=== PATIENT | female | born 1950 | race Caucasian/White ===

== ENCOUNTER → 2017-03-09 | Outpatient (CLI) | payer BC, MEDICARE ==
[~2017-03-09] MED LIST: ALTACE10 MG PO; ASPIRIN325 MG PO; CYTOMEL5 MCG PO; DILAUDID 2MG(HYD2 MG PO; LEVOTHROID (S100 MCG PO; NORCO 5-325 TA1 EACH PO; PRAVACHOL20 MG PO; SOMA350 MG PO; ZANTAC 7575 MG PO; ZYRTEC10 MG PO
== END | disposition disaster alternative care site (69) ==
LOC: GRAD 14:25
DX: M25.572 Pain in left ankle and joints of left foot (principal)

== ENCOUNTER 2017-04-07 21:00 | Observation (INO) | payer BC, MEDICARE ==
[~2017-04-07] VITALS: Ht 154.9 cm; Wt 88.2 kg
--- NOTE | ~2017-04-07 | OR ---
PATIENT'S NAME: RASHI TEMPLETON [facility] AGE: 66 Y [address] ROOM: [place] [address] [place] [facility] [place]: 04/07/2017 OR/Procedure Report DISCHARGE DATE: 04/10/2017 FAMILY PHYSICIAN: Roya Forbes MD ATTENDING PHYSICIAN: BERNARDO HENDERSON SURGEON: Bernardo Henderson MD [facility] EDUCATOR: Juan R Johnson PA-C. DATE OF PROCEDURE: 04/07/2017 PREOPERATIVE DIAGNOSES: 1. Left symptomatic flatfoot deformity. 2. Forefoot abductus. 3. Sub-fibular impingement syndrome. 4. Spring ligament failure. 5. Gastrocnemius equinus/shortened Achilles tendon. POSTOPERATIVE DIAGNOSES: 1. Left symptomatic flatfoot deformity. 2. Forefoot abductus. 3. Sub-fibular impingement syndrome. 4. Spring ligament failure. 5. Gastrocnemius equinus/shortened Achilles tendon. PROCEDURE: 1. Left gastrocnemius recession. 2. Medial sliding calcaneal osteotomy. 3. Lateral column lengthening. 4. Transfer of flexor digitorum longus tendon to the navicular bone. 5. Posterior tibial tendon tenolysis. 6. Cotton osteotomy of the medial cuneiform. 7. Use of intraoperative fluoroscopy, less than 1 hour. ANESTHESIA: General endotracheal anesthesia and peripheral nerve block. FLUIDS: See Anesthesia report. ESTIMATED BLOOD LOSS: Minimal. TOURNIQUET: Left proximal thigh 250 mmHg. SPECIMEN: None. COMPLICATIONS: None. DISPOSITION: Stable to PACU. PATIENT'S NAME: RASHI TEMPLETON [facility] AGE: 66 Y [address] ROOM: [place] [address] [place] [facility] [place]: 04/07/2017 OR/Procedure Report DISCHARGE DATE: 04/10/2017 FAMILY PHYSICIAN: Roya Forbes MD ATTENDING PHYSICIAN: BERNARDO HENDERSON COUNTS: All counts were correct. IMPLANTS: Arthrex Step Plate for calcaneal osteotomy and bone wedges for lateral column lengthening and cotton osteotomy. INDICATIONS: Ms. Templeton is a 66-year-old female, who is undergoing the noted procedure above. The risks, benefits, and alternatives of pursuing the surgical intervention were discussed with the patient in detail. The patient elected to proceed with surgery as noted above. I marked the patient's left lower extremity indicating the correct surgical site. Anesthesia was consulted for their perioperative evaluation of the patient. OPERATIVE REPORT IN DETAIL: The patient was brought from the holding area to the operating room. Time-out was performed. General endotracheal anesthesia was administered. The left lower extremity was prepped and draped in a sterile fashion. A time- out was performed. Antibiotics were administered for perioperative prophylaxis. I turned my attention to the medial aspect of the leg. I performed a gastrocnemius recession procedure. I achieved improved dorsiflexion of the ankle. It was closed in layers. I turned my attention to the lateral aspect of the calcaneus. I introduced intraoperative fluoroscopy. I made an incision over the lateral aspect of the calcaneus to access the calcaneus. I used an oscillating saw to perform our medial calcaneal osteotomy. I slid the calcaneus medially approximately 10 mm. I used a 10 mm Step Plate and under fluoroscopic guidance, I placed plate screws to hold it in place. The wound was then copiously irrigated and closed in layers. I turned my attention to the lateral aspect of the hindfoot. I fluoroscopically identified the anterior process of the calcaneus. I made a surgical incision and retracted the peroneal tendons. I identified 1 cm proximal to the calcaneocuboid joint. I used an oscillating saw for my lateral column lengthening. I placed my bone wedge to adduct the foot. I then placed 2 screws through the metal wedge graft to hold it in place. The wound was then copiously irrigated and closed in layers. I turned my attention to the medial aspect of the foot. I made an incision just beneath the navicular bone to identify the posterior tibial tendon. The posterior tibial tendon was frayed and thickened. I excised the posterior tibial tendon. I subsequently identified the flexor digitorum longus tendon. I cut the PATIENT'S NAME: RASHI TEMPLETON [facility] AGE: 66 Y [address] ROOM: [id number] [place] [id number] [place] [facility] [place]: 04/07/2017 OR/Procedure Report DISCHARGE DATE: 04/10/2017 FAMILY PHYSICIAN: Roya Forbes MD ATTENDING PHYSICIAN: BERNARDO HENDERSON tendon just proximal to the knot of Tony. I then using Zubie reamer drive, I filled a hole through the dorsum of the navicular bone. I transferred the flexor digitorum longus tendon and placed my venous tenodesis screw to hold it in place. I then turned my attention to the medial cuneiform. I made a dorsal incision through the skin and subcutaneous tissue. I identified the center portion of the medial cuneiform bone fluoroscopically. I used a sagittal saw to make my medial cuneiform osteotomy. I opened the osteotomy and placed my metallic wedge. I placed a metallic staple to hold the wedge in place and compressed across it. I confirmed the position of the wedge fluoroscopically. The wound was then copiously irrigated and closed in layers. Final fluoroscopic images revealed evidence of a successful left flatfoot reconstruction. Sterile dressings were placed in the form of Xeroform, followed by 4x4 and Webril. The patient was then placed into a well-padded short-leg splint with the ankle in the neutral dorsiflexion and inversion. The tourniquet was let down. The patient was then transferred from the operating table on the stretcher and extubated. She was brought to the recovery room in stable condition. There were no intraoperative complications noted. Of note, my PA, Juan R Johnson PA-C, played an integral role in the intraoperative care of this patient. This included preoperative positioning, intraoperative expert retraction, and closing and splinting functions. IMPRESSION: The patient is status post the noted procedures above. PLAN: The patient will be nonweightbearing on the left lower extremity. She will be encouraged to rest, ice, and elevate the foot going forward. Peripheral nerve blocks in place. DVT prophylaxis will be in the form of aspirin. Pain control will be in the form of Percocet. She will be discharged home from the PACU, provided she meets PACU discharge criteria. I will see her in my office in 2 weeks for first postoperative visit. MD SAMANTHA LEONARD/latosha PATIENT'S NAME: RASHI TEMPLETON [facility] AGE: 66 Y [address] ROOM: [place] [address] [place] [facility] [place]: 04/07/2017 OR/Procedure Report DISCHARGE DATE: 04/10/2017 FAMILY PHYSICIAN: Roya Forbes MD ATTENDING PHYSICIAN: BERNARDO HENDERSON /[id number] d: 04/07/17 2328 t: 04/11/17 1639, OPERATIVE SUMMARY
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
--- NOTE | ~2017-04-07 | CON ---
PATIENT'S NAME: RASHI [facility] AGE: 66 Y [address] ROOM: [place] [address] LOCATION: [facility] ADMIT DATE: 04/07/2017 Consultation DISCHARGE DATE: FAMILY PHYSICIAN: Roya Forbes MD ATTENDING PHYSICIAN: BERNARDO HENDERSON DATE OF CONSULTATION: 04/07/2017 REFERRING PHYSICIAN: PAT AMOS REQUESTING PHYSICIAN: Dr. Bernardo Henderson. CONSULTING PHYSICIAN: Dr. Johnnie Liz. REASON FOR CONSULTATION: Inpatient management. HISTORY OF PRESENT ILLNESS: The patient is a 66-year-old female with past medical history of hypertension and hypercholesterolemia. She is postop day 0 for a reconstruction of the left foot and repair of a flatfoot. The patient was originally supposed to go home, but felt jittery and unsteady in the PACU and requested to be watched overnight. At this point, she is quite a few hours after the surgery and reports no symptoms. She feels that she will be okay to go home tomorrow. REVIEW OF SYSTEMS: Patient denies any chest pain, shortness of breath, nausea, vomiting, diarrhea, or palpitations at this time. All systems have been reviewed and are negative aside from pertinent positives mentioned above. PAST MEDICAL HISTORY: As above. PAST SURGICAL HISTORY: Significant for the foot surgery performed today. SOCIAL HISTORY: Negative for any toxic habits. The patient is quite active, and lives in a motor home. FAMILY HISTORY: Reviewed. It is noncontributory due to advanced age. PATIENT'S NAME: RASHI [facility] AGE: 66 Y [address] ROOM: [place] [address] LOCATION: [facility] ADMIT DATE: 04/07/2017 Consultation DISCHARGE DATE: FAMILY PHYSICIAN: Roya Forbes MD ATTENDING PHYSICIAN: BERNARDO HENDERSON PHYSICAL EXAMINATION: VITAL SIGNS: Blood pressure 160/74, saturating 97% on room air, respirations 16, pulse 90, temperature 98.2. GENERAL: Appears as a well-developed, well-nourished elderly female, in no acute distress. NEUROLOGIC: Nonfocal. EYE: Pupils are equal and reactive to light. LYMPHATICS: No cervical lymphadenopathy. ENDOCRINE: No thyromegaly. LUNGS: Clear to auscultation. HEART: Rate is regular. No appreciable murmurs, gallops, or rubs. GI: Abdomen is soft, nontender, and nondistended. : No costovertebral angle tenderness. MUSCULOSKELETAL: Deferred. SKIN: Warm and dry. STUDIES: No studies are available as of now. ASSESSMENT AND PLAN: This is a 66-year-old female, who will be admitted for observation after an uneventful foot surgery. We will provide her with pain support. We will provide her with her home medicines. We will reevaluate her in the morning for discharge. Additional management will depend on clinical course. Thank you for allowing us to participate in the care of this patient. Time dedicated to this patient encounter is 15 minutes. MD SURINDER MEYER/latosha /[id number] d: 04/08/178 t: 04/19/172022, CONSULTATION REPORT
[~2017-04-07 21:00] MED LIST changes: -DILAUDID 2MG(HYD2 MG PO; -SOMA350 MG PO
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
--- NOTE | 2017-04-08 12:15 | NUR ---
Introduced self and care management services to patient. Lives in [place] with spouse. Plans on going home on discharge, denies concerns about going home on discharge. Has walker at home, spouse will assist as needed.
--- NOTE | 2017-04-08 13:51 | NUR ---
Significant Event: AOx3. VSS. Patient can wiggle toes and has dull sensation. BLock is slowly wearing off. Patient was suppose to be discharged today but had increased pain. Dr. Gerber was called and is aware. Ice and elevate. Uses wheel chair to bathroom. [place] wrap dressing to L) lower leg is dry antact and has old bloody drainage that has been circled from last night. Up with 1 assist. Follow up:
--- NOTE | 2017-04-09 04:48 | NUR ---
Patient alert and oriented x3, very pleasant and coopeartive, has had pain issues this shift rating it at a 5 but feels that she should have less pain, has been getting soma, narco and IV Morphine could possible benifit from trying diluadid, has slep some inbetween pain medication, uses wheelchair for transfers-wheelchair needs returned to the joint room when she is finished using it, originally she planned to go home today but unsure with her current pain issues.
--- NOTE | 2017-04-09 17:16 | NUR ---
Significant Event: Pivot transfers with SBA. Uses wheelchair to get to bathroom, wheel chair needs returned to [facility] room when patient dismisses. Pain medication changed to Dilaudid 2mg, last at 1715. Cast D/I, old marked drainage. Voids without diffiuclty. Emesis this am, better this afternoon. IV d/cd d/t leaking, patient refuses new IV. Follow up:
--- NOTE | 2017-04-10 06:01 | NUR ---
Significant Event: Patient alert and orientated, up to bathroom with w/c and one assist. Taking PO diluadid about every 3 hours and this has helped with pain issue. Last dose at 0600. Pleasant and cooperative with cares. Follow up: Continue to monitor.
[2017-04-10] MEDS ORDERED: NORCO 5-325 TA1 EACH PO (17:04)
[2017-04-10] MEDS ORDERED: SOMA350 MG PO (17:06)
[2017-04-10] MEDS ORDERED: DILAUDID 2MG(HYD2 MG PO (17:15)
--- NOTE | 2017-04-10 17:48 | NUR ---
Dismissal Note: Pivot transfers with SBA. Maintains NWB to L) foot. Voids without dififuculty. Dialudid 2mg and Soma 350mg for pain control. Nesha patel dismissal instructions, patient and state understanding. Dimsissed to home with .
== END 2017-04-10 17:40 | disposition disaster alternative care site (69) ==
LOC: GSDC 21:00 → G3N 21:00 → GSDC 21:01 → GMSU 21:01 → G3N 04-08 16:39 → GMSU 04-10 17:40 → GSDC 04-10 17:40
PROVIDERS: ADMIT Orthopaedic Surgery Adult Reconstructive Orthopaedic Surgery
PROC: 0LNP0ZZ Release Left Lower Leg Tendon, Open Approach (ICD-10-PCS; principal; 2017-04-07)
PROC: 0QBM0ZZ Excision of Left Tarsal, Open Approach (ICD-10-PCS; principal; 2017-04-07)
PROC: 0L8P0ZZ Division of Left Lower Leg Tendon, Open Approach (ICD-10-PCS; principal; 2017-04-07)
PROC: 0LXW0ZZ Transfer Left Foot Tendon, Open Approach (ICD-10-PCS; principal; 2017-04-07)
PROC: 0QBR0ZZ Excision of Left Toe Phalanx, Open Approach (ICD-10-PCS; principal; 2017-04-07)
DX: M21.42 Flat foot [pes planus] (acquired), left foot (principal); M21.6X2 Other acquired deformities of left foot; M25.872 Other specified joint disorders, left ankle and foot; M67.02 Short Achilles tendon (acquired), left ankle; Z23 Encounter for immunization; I10 Essential (primary) hypertension; Z90.49 Acquired absence of other specified parts of digestive tract; Z88.8 Allergy status to other drugs, medicaments and biological substances; Z98.890 Other specified postprocedural states; Z83.3 Family history of diabetes mellitus
CPT/HCPCS: C1713; C1776; G0009; G0378; G8978; G8979; G8980; G8984; G8985; G8986; J0690; J2001; J2270; J7030